=== PATIENT | male | born 1960 | race Caucasian/White ===

== ENCOUNTER 2019-09-19 20:07 | Emergency (ER) | payer OTHER, SELFPAY ==
[2019-09-19 20:09] VITALS: BP 134/96; PULSE 72; RESP 18; TEMP 36.9; O2SAT 96; BMI 30.3
--- NOTE | 2019-09-19 20:12 | ED_ITS ---
Entered by Sarahy Bhakta, acting as scribe for Brian Roche MD HPI - Anxiety General: Chief Complaint: Anxiety Stated Complaint: ANXIETY Time Seen by Provider: 09/19/19 20:12 Source: patient Mode of arrival: EMS Limitations: no limitations History of Present Illness: HPI narrative: 59 yo male presents to ED with complaints of anxiety. The patient said was sitting in chair when everything went going through his mind like a film. He said he has anxiety attacks and it is sort of like this. He said he has bad anxiety. He said the neurologist in [place] told the patient he may be having seizures. The patient states he feels pretty good right now. complaint: anxiety Onset (ago): minute(s) Symptoms: other (dizzy) Severity: moderate Quality: intermittent and improving Place: home History of similar episodes: Yes Provoking factors: emotional stress (argument with ) Relieving factors: nothing Exacerbating factors: nothing Associated symptoms: Reports no associated symptoms; Deny chest pain, chills, fever(s), headache(s), nausea or vomiting Review of Systems General: Reports: 10 or more systems reviewed and unremarkable except in HPI and below Const: Denies: fever or chills Eyes: Denies: change in vision ENMT: Denies: throat pain or mouth pain Card: Denies: chest pain Resp: Denies: shortness of breath GI: Denies: abdominal pain, nausea, vomiting or diarrhea Musc: Denies: back pain or joint pain Skin/Breast: Denies: rash Neuro: Reports: weakness in extremities; Denies: headache or behavioral changes Psych: Denies: depression Endo: Denies: excessive urination Praful/Lymph: Denies: easy bruising All/Imm: Denies: hives PFSH ED PFSH: Statuses (acute, chronic, etc) shown below reflect problem list status as previously entered and may not be historically accurate Social History Smoking and tobacco status: current every day smoker Physical Exam Const: COMMON NORMALS: no apparent distress, oriented x3 and healthy appearing HENMT: COMMON NORMALS: normocephalic and external nose normal HEAD & SCALP: normocephalic NOSE: external nose normal and no nasal discharge (nasal dischage) Eye: COMMON NORMALS: PERRL PUPIL: Yes PERRL Neck/C-Spine: COMMON NORMALS: full ROM and no lymphadenopathy Chest: COMMONS NORMALS: inspection of chest normal Resp: COMMON NORMALS: normal respiratory effort and clear to auscultation bilaterally AUSCULTATION: clear to auscultation bilaterally Cardio: COMMON NORMALS: regular rate and regular rhythm RATE: regular rate RHYTHM: regular rhythm GI: COMMON NORMALS: soft to palpation PALPATION: Yes soft Extremity: COMMON NORMALS: normal to inspection, full ROM and normal capillary refill Neuro: COMMON NORMALS: oriented x3, CN's II-XII intact bilaterally, moves all extremities, no focal motor deficits, no sensory deficits noted and gait normal Psych: COMMON NORMALS: mental status grossly normal and cooperative Skin: COMMON NORMALS: no rashes or lesions noted GENERAL SKIN EXAM: no rashes or lesions noted Course Vital Signs: Vital signs: Vital Signs Temperature 98.5 F 09/19/19 20:09 Pulse Rate 72 09/19/19 20:09 Respiratory Rate 18 09/19/19 20:09 Blood Pressure 134/96 09/19/19 20:09 Pulse Oximetry 96 09/19/19 20:09 MDM - Anxiety MDM Narrative: Medical decision making narrative: Patient presents here with likely anxiety. He could have also had a possible TIA but I believe this is unlikely. Patient here is asymptomatic and is well-appearing. Patient's head CT is normal. Patient's lab work is normal as well. Patient has been asymptomatic here and is able to ambulate without any problems. He is stable for discharge and is to follow-up with his primary care doctor in 3 to 4 days. He is to return if worsening. Imaging Data^: CT Head: Radiologist's impression: Ordering Provider/Ordering MD: Brian Roche MD Date of Service: 09/19/19 Procedure(s): CT head wo con* [id number] Accession Number(s): [id number] Report Number: [id number] PROCEDURE INFORMATION: Exam: CT Head Without Contrast Exam date and time: 09/19/2019 8:23 PM Age: 59 years old Clinical indication: Dizziness and other: Anxious; Prior surgery; Surgery date: 6+ months; Surgery type: Brain for aneurysm TECHNIQUE: Imaging protocol: Computed tomography of the head without contrast. Total DLP: 880.47 mGy-cm Radiation optimization: All CT scans at this facility use at least one of these dose optimization techniques: automated exposure control; mA and/or kV adjustment per patient size (includes targeted exams where dose is matched to clinical indication); or iterative reconstruction. COMPARISON: CT head wo con* [id number] 02/10/2019 8:06 AM FINDINGS: Brain: There is encephalomalacia of the right cerebellum. Embolization coils are noted in the posterior cranial fossa. No acute hemorrhage, edema or mass effect. No new edema, hemorrhage or mass effect. Ventricles: The ventricular size is appropriate. Bones/joints: Unremarkable. No acute fracture. Sinuses: Visualized sinuses are unremarkable. No fluid levels. Mastoid air cells: Visualized mastoid air cells are well aerated. Soft tissues: Unremarkable. Other findings: There is mild volume loss. CT/CT head wo con* [id number] IMPRESSION: Postoperative changes in the posterior cranial fossa with multiple embolization coils. There is encephalomalacia. No acute hemorrhage or edema. EKG Data^: EKG 1: Attestation: I personally reviewed and interpreted this EKG as follows: EKG interpretation date: 09/19/19 EKG interpretation time: 20:25 Interpretation: Head CT 09/19/19 20:15 IMPRESSION: Postoperative changes in the posterior cranial fossa with multiple embolization coils. There is encephalomalacia. No acute hemorrhage or edema. Radiation Dose CTDIVOL = (mGy): DLP = 880.47 (mGy-cm) Normal sinus rhythm heart rate [address] or T wave abnormalities Other EKG comments: Head CT 09/19/19 20:15 IMPRESSION: Postoperative changes in the posterior cranial fossa with multiple embolization coils. There is encephalomalacia. No acute hemorrhage or edema. Radiation Dose CTDIVOL = (mGy): DLP = 880.47 (mGy-cm) Lab Data: Labs: Lab Results 09/19/19 09/19/19 Range/Units 20:47 20:47 WBC 9.8 (4.0-10.0) 10^3/ uL RBC 4.82 (4.1-5.3) 10^6/u L Hgb 14.9 (11.7-16.6) g/dL Hct 43.3 (42.0-52.0) % MCV 89.8 (80-94) fL MCH 30.9 (28.0-34.0) pg MCHC 34.4 (30.0-36.0) g/dL RDW 12.5 (12.1-15.1) % Plt Count 300 (130-400) 10^3/c mm MPV 9.0 (7.4-10.4) fL Neut % (Auto) 59.1 % Lymph % (Auto) 24.8 % Garland % (Auto) 12.9 % Eos % (Auto) 2.3 % Baso % (Auto) 0.6 % Neut # (Auto) 5.8 (1.8-7.7) 10^3/u L Lymph # (Auto) 2.4 (0.8-4.8) 10^3/u L Garland # (Auto) 1.3 H (0.2-0.9) 10^3/u L Eos # (Auto) 0.2 (0.0-0.8) 10^3/u L Baso # (Auto) 0.1 (0.0-0.1) 10^3/u L Nucleated RBC % (a uto) 0 % Nucleated RBCs # 0.0 /100WBC Sodium 136 (136-145) mmol/L Potassium 3.9 (3.5-5.1) mmol/L Chloride 98 (98-107) mmol/L Carbon Dioxide 25 (22-29) mmol/L Anion Gap 16.9 (5-19) BUN 13 (6-20) mg/dL Creatinine 1.0 (0.7-1.2) mg/dL GFR Calculation 77.0 L (90-130) mL/min Glucose 116 H (74-109) mg/dL Calculated Osmolal ity 279 L (285-295) mOsm/k g Calcium 10.1 (8.5-10.5) mg/dL Discharge Plan Discharge Patient Disposition: Home, Self-Care Clinical Impression: Acute anxiety, Weakness Condition: Stable Discharge Orders: Discharge Order (Routine); Ordered 09/19/19 Ordered By: Brian Roche Referrals: Mirlande Mena APN [Primary Care Provider] - 4-7 days Discharge Diet: Advance as tolerated Discharge Activity: Resume usual activity Patient Instructions: Anxiety (ED) Coding Level of Care Code ED Psychiatry Physician for Chg Fwd Exam Problem Focused The documentation recorded by the scribLivia yu Valerie R, accurately reflects the service I personally performed and the decisions made by me, Brian Roche MD Sep 19, 2019 20:07
--- NOTE | 2019-09-19 20:15 | CTR_ITS ---
PROCEDURE INFORMATION: Exam: CT Head Without Contrast Exam date and time: 09/19/2019 8:23 PM Age: 59 years old Clinical indication: Dizziness and other: Anxious; Prior surgery; Surgery date: 6+ months; Surgery type: Brain for aneurysm TECHNIQUE: Imaging protocol: Computed tomography of the head without contrast. Total DLP: 880.47 mGy-cm Radiation optimization: All CT scans at this facility use at least one of these dose optimization techniques: automated exposure control; mA and/or kV adjustment per patient size (includes targeted exams where dose is matched to clinical indication); or iterative reconstruction. COMPARISON: CT head wo con* [id number] 02/10/2019 8:06 AM FINDINGS: Brain: There is encephalomalacia of the right cerebellum. Embolization coils are noted in the posterior cranial fossa. No acute hemorrhage, edema or mass effect. No new edema, hemorrhage or mass effect. Ventricles: The ventricular size is appropriate. Bones/joints: Unremarkable. No acute fracture. Sinuses: Visualized sinuses are unremarkable. No fluid levels. Mastoid air cells: Visualized mastoid air cells are well aerated. Soft tissues: Unremarkable. Other findings: There is mild volume loss. CT/CT head wo con* [id number] IMPRESSION: Postoperative changes in the posterior cranial fossa with multiple embolization coils. There is encephalomalacia. No acute hemorrhage or edema. Radiation Dose CTDIVOL = (mGy): DLP = 880.47 (mGy-cm)
--- NOTE | 2019-09-19 20:15 | ECG_ITS ---
Measurements Intervals [place] Rate: 66 P: 42 OK: 166 QRS: -11 QRSD: 98 T: 27 QT: 390 QTc: 410 SINUS RHYTHM Compared to ECG 02/10/2019 08:02:25 Indeterminate axis no longer present Incomplete right bundle-branch block no longer present Electronically Signed On 09-20-2019 15:33:17 METALLURGICAL LAB TECHNICIAN by King Cho M.D. [email or web address]
[2019-09-19] MEDS: LORazepam 2 mg/mL INJ 1 mL 1 MG IVP (20:25)
[2019-09-19 20:52] LABS: Basophils # 0.1 10^3/uL (0.0-0.1); Basophils % 0.6 %; Eosinophils # 0.2 10^3/uL (0.0-0.8); Eosinophils % 2.3 %; Hematocrit 43.3 % (42.0-52.0); Hemoglobin 14.9 g/dL (11.7-16.6); Lymphocytes # 2.4 10^3/uL (0.8-4.8); Lymphocytes % 24.8 %; Mean Corpuscular HGB Conc 34.4 g/dL (30.0-36.0); Mean Corpuscular Hemoglobin 30.9 pg (28.0-34.0); Mean Corpuscular Volume 89.8 fL (80-94); Monocytes # 1.3 10^3/uL (0.2-0.9); Monocytes % 12.9 %; Neutrophils # 5.8 10^3/uL (1.8-7.7); Neutrophils % 59.1 %; Nucleated Red Blood Cells % 0 %; Platelet Count 300 10^3/cmm (130-400); Red Blood Count 4.82 10^6/uL (4.1-5.3); Red Cell Distribution Width 12.5 % (12.1-15.1); White Blood Count 9.8 10^3/uL (4.0-10.0)
[2019-09-19 21:09] LABS: Anion Gap 16.9 (5-19); Blood Urea Nitrogen 13 mg/dL (6-20); Calcium 10.1 mg/dL (8.5-10.5); Carbon Dioxide 25 mmol/L (22-29); Chloride 98 mmol/L (98-107); Glucose 116 mg/dL (74-109); Osmolality Calculated 279 mOsm/kg (285-295); Potassium 3.9 mmol/L (3.5-5.1); Sodium 136 mmol/L (136-145)
[2019-09-19 21:33] VITALS: BP 122/79; PULSE 67; RESP 16; O2SAT 95
== END 2019-09-19 21:34 | disposition home or self-care (01) ==
PROVIDERS: Emergency Provider Emergency Medicine; Family Provider Nurse Practitioner Family; PCP Nurse Practitioner Family
DX: F41.9 Anxiety disorder, unspecified (principal); R53.1 Weakness; F17.210 Nicotine dependence, cigarettes, uncomplicated
CPT/HCPCS: 70450; 80048; 85025; 93005; 96374; 99281; J2060

== ENCOUNTER → 2019-10-17 07:37 | Outpatient (BNVA) | payer OTHER, SELFPAY | PROVIDERS: Referring Provider Internal Medicine; Visit Provider Specialist | DX: R56.9 Unspecified convulsions (principal); I77.0 Arteriovenous fistula, acquired; F31.0 Bipolar disorder, current episode hypomanic; F17.210 Nicotine dependence, cigarettes, uncomplicated | CPT/HCPCS: 99204; 99214 ==

== ENCOUNTER → 2019-11-12 08:05 | Outpatient (BNVA) | payer OTHER, SELFPAY | PROVIDERS: PCP Internal Medicine; Visit Provider Specialist | DX: G40.909 Epilepsy, unspecified, not intractable, without status epilepticus (principal); F17.210 Nicotine dependence, cigarettes, uncomplicated | CPT/HCPCS: 99213 ==

== ENCOUNTER 2019-11-12 09:13 | Outpatient (CLI) | payer OTHER, SELFPAY ==
[2019-11-12 11:20] LABS: Valproic Acid Level 70.2 mcg/mL (50-100)
== END 2019-11-12 09:14 | disposition home or self-care (01) ==
LOC: LAB 09:15
PROVIDERS: PCP Internal Medicine; Visit Provider Specialist
DX: G40.909 Epilepsy, unspecified, not intractable, without status epilepticus (principal)
CPT/HCPCS: 80164

== ENCOUNTER → 2020-02-18 11:11 | Outpatient (BNVA) | payer OTHER, SELFPAY | PROVIDERS: PCP Internal Medicine; Visit Provider Specialist | DX: G40.209 Localization-related (focal) (partial) symptomatic epilepsy and epileptic syndromes with complex partial seizures, not intractable, without status epilepticus (principal); R29.90 Unspecified symptoms and signs involving the nervous system; F31.0 Bipolar disorder, current episode hypomanic; I69.398 Other sequelae of cerebral infarction; R42 Dizziness and giddiness | CPT/HCPCS: 99214 ==

== ENCOUNTER → 2020-08-19 08:58 | Outpatient (BNVA) | payer OTHER, SELFPAY | PROVIDERS: PCP Internal Medicine; Visit Provider Specialist | DX: G40.209 Localization-related (focal) (partial) symptomatic epilepsy and epileptic syndromes with complex partial seizures, not intractable, without status epilepticus (principal); F17.210 Nicotine dependence, cigarettes, uncomplicated | CPT/HCPCS: 99213 ==

== ENCOUNTER → 2021-02-17 07:54 | Outpatient (BNVA) | payer OTHER, SELFPAY | PROVIDERS: PCP Internal Medicine; Visit Provider Specialist | DX: G40.209 Localization-related (focal) (partial) symptomatic epilepsy and epileptic syndromes with complex partial seizures, not intractable, without status epilepticus (principal); F17.210 Nicotine dependence, cigarettes, uncomplicated | CPT/HCPCS: 99214 ==

== ENCOUNTER → 2021-03-16 12:55 | Outpatient (BNVA) | payer OTHER, SELFPAY | PROVIDERS: PCP Internal Medicine; Visit Provider Specialist | DX: G40.209 Localization-related (focal) (partial) symptomatic epilepsy and epileptic syndromes with complex partial seizures, not intractable, without status epilepticus (principal); F17.210 Nicotine dependence, cigarettes, uncomplicated | CPT/HCPCS: 95816 ==

== ENCOUNTER 2021-03-16 14:18 | Outpatient (CLI) | payer OTHER, SELFPAY ==
[2021-03-16 14:57] LABS: Valproic Acid Level 73.3 ug/mL (50-100)
== END 2021-03-16 14:19 | disposition home or self-care (01) ==
PROVIDERS: PCP Internal Medicine; Visit Provider Specialist
DX: G40.209 Localization-related (focal) (partial) symptomatic epilepsy and epileptic syndromes with complex partial seizures, not intractable, without status epilepticus (principal)
CPT/HCPCS: 36415; 80164

== ENCOUNTER → 2021-05-05 12:54 | Outpatient (BNVA) | payer OTHER, SELFPAY | PROVIDERS: PCP Internal Medicine; Visit Provider Specialist | DX: G40.209 Localization-related (focal) (partial) symptomatic epilepsy and epileptic syndromes with complex partial seizures, not intractable, without status epilepticus (principal); F31.0 Bipolar disorder, current episode hypomanic; G25.0 Essential tremor | CPT/HCPCS: 99214 ==

== ENCOUNTER → 2021-11-03 08:57 | Outpatient (BNVA) | payer OTHER, SELFPAY | PROVIDERS: PCP Family Medicine; Visit Provider Specialist | DX: G40.209 Localization-related (focal) (partial) symptomatic epilepsy and epileptic syndromes with complex partial seizures, not intractable, without status epilepticus (principal); F17.210 Nicotine dependence, cigarettes, uncomplicated | CPT/HCPCS: 99214 ==

== ENCOUNTER 2022-02-05 19:29 | Emergency (ER) | payer OTHER, MEDICARE, SELFPAY ==
--- NOTE | 2022-02-05 19:29 | XRR_ITS ---
PROCEDURE INFORMATION: Exam: XR Left Shoulder Exam date and time: 02/05/2022 7:49 PM Age: 62 years old Clinical indication: Injury or trauma; Blunt trauma (contusions or hematomas); Shoulder; Left; Injury details: Fall from porch TECHNIQUE: Imaging protocol: XR Left shoulder. Views: 2 or more views. COMPARISON: [place] Chest 1 [place] [id number] 02/10/2019 8:10 AM FINDINGS: Bones/joints: Mid humeral diaphysis fracture with angulation and nearly 1 full shaft displacement. Soft tissues: Normal. XR/XR shoulder LT min 2V* [id number] IMPRESSION: Mid humeral diaphysis fracture with angulation and nearly 1 full shaft displacement.
[2022-02-05 19:33] VITALS: BP 161/107; PULSE 69; RESP 20; TEMP 36.6; O2SAT 94; BMI 32.5
[2022-02-05 19:47] VITALS: BP 158/122; PULSE 67; O2SAT 93
--- NOTE | 2022-02-05 19:49 | XRR_ITS ---
PROCEDURE INFORMATION: Exam: XR Left Humerus Exam date and time: 02/05/2022 7:55 PM Age: 62 years old Clinical indication: Injury or trauma; Blunt trauma (contusions or hematomas); Arm, upper; Left; Injury details: Fall from porch TECHNIQUE: Imaging protocol: XR Left humerus. Views: 2 or more views. COMPARISON: CR (CHEST, ) 02/05/2022 7:49 PM FINDINGS: Bones/joints: Mid humeral diaphysis fracture with angulation and nearly 1 full shaft displacement. Soft tissues: Normal. XR/[place] [id number] IMPRESSION: Mid humeral diaphysis fracture with angulation and nearly 1 full shaft displacement.
[2022-02-05] MEDS: HYDROcodone-acetaminophen 5-325 mg Tablet 1 TAB PO (19:53)
--- NOTE | 2022-02-05 20:01 | ED_ITS ---
HPI - Extremity Problem General: Chief complaint: Extremity Injury, Upper Stated complaint: fell, injured L arm/shoulder Time Seen by Provider: 02/05/22 19:38 Source: patient Mode of arrival: ambulatory Limitations: no limitations History of Present Illness: 62-year-old male states that he was on a porch bent over to get his cat and he fell onto his left arm. He states he has pain in his left arm at his midshaft of his humerus. He has obvious deformity as well. He states his pain currently is a 6 out of 10. Denies any other injuries denies hitting his head denies any neck pain. Associated symptoms: Deny chest pain, fever(s) or rash Review of Systems Const: Denies: fever(s), chills, body aches or change in appetite Eyes: Denies: blurry vision or eye discomfort ENMT: Denies: throat pain or dental pain Card: Denies: chest pain Resp: Denies: dyspnea GI: Denies: abdominal pain, nausea, vomiting or diarrhea : Denies: dysuria Musc: Reports: extremity pain Skin/Breast: Denies: rash Neuro: Denies: headache(s) Psych: Denies: depression Praful/Lymph: Denies: easy bruising All/Imm: Denies: urticaria PFSH ED PFSH: Family History Other CAD (coronary artery disease) Hypertension Denies family history of Diabetes Cancer Stroke Social History Smoking and tobacco status: current every day smoker cigarettes Packs smoked per day: 0.5 Alcohol intake: current Alcohol intake frequency: few times a week Alcohol type: beer History of recent travel: No Physical Exam Const: COMMON NORMALS: no acute distress, patient oriented x3 and healthy appearing HENMT: COMMON NORMALS: normocephalic and atraumatic HEAD & SCALP: normocephalic and atraumatic Eye: COMMON NORMALS: Equal, round and reactive pupils present and EOMs intact bilaterally PUPIL: Yes Equal, round and reactive pupils present Neck/C-Spine: COMMON NORMALS: full ROM and supple Chest: COMMONS NORMALS: normal inspection of the chest and normal palpation of entire chest wall Resp: COMMON NORMALS: normal respiratory effort, No retractions, No use of accessory muscles and clear to auscultation bilaterally AUSCULTATION: clear to auscultation bilaterally Cardio: COMMON NORMALS: regular rate, regular rhythm and No murmurs present (Cardio) RATE: regular rate RHYTHM: regular rhythm GI: COMMON NORMALS: Normal to inspection, nondistended, normoactive bowel so unds present, Soft to palpation, non-tender and no masses PALPATION: Yes Soft to palpation Extremity: NARRATIVE EXTREMITY EXAM: Obvious deformity to left humerus he does have sensation intact his left hand distal pulses are intact as well Neuro: COMMON NORMALS: patient oriented x3, moves all extremities and no focal motor deficits Psych: COMMON NORMALS: mental status grossly normal, Normal thought process present and cooperative THOUGHT PROCESS: Normal thought process present Skin: COMMON NORMALS: no rashes or lesions noted and no wounds GENERAL SKIN EXAM: no rashes or lesions noted Course Vital Signs: Vital signs: Vital Signs Temperature 97.8 F 02/05/22 19:33 Pulse Rate 67 02/05/22 19:47 Respiratory Rate 20 H 02/05/22 19:33 Blood Pressure 158/122 02/05/22 19:47 Pulse Oximetry 93 02/05/22 19:47 MDM - Extremity (Nontraumatic) Medical Decision Making Patient presents here with a humerus fracture from a fall spoke to orthopedics will place patient in a splint have him follow-up early next week he has no other signs of injury he is neurovascularly intact. Discharge Plan Discharge Patient Disposition: Home Clinical Impression: Fracture, humerus Qualifiers: Encounter type: initial encounter Humerus Location: shaft Fracture type: closed Fracture morphology: unspecified fracture morphology Laterality: left Qualified Code(s): S42.302A - Unspecified fracture of shaft of humerus, left arm, initial encounter for closed fracture Condition: Stable Prescriptions: New hydrocodone-acetaminophen 5-325 mg tablet 1 tab PO Q6H PRN (Reason: pain) Qty: 14 0RF No Action divalproex [Depakote ER] 500 mg tablet extended release 24 hr 500 mg PO TID Qty: 90 5RF Rx Instructions: Take all 3 in morning primidone 50 mg tablet 50 mg PO BID Qty: 60 5RF Rx Instructions: Take 1 in morning and 1 in afternoon thiamine HCl (vitamin B1) 100 mg tablet 50 mg PO DAILY 0RF multivitamin Capsule 1 cap PO DAILY 0RF aspirin [Aspir-81] 81 mg tablet,delayed release (DR/EC) 81 mg PO DAILY 0RF hydroxyzine HCl 25 mg tablet 25 mg PO TID PRN0RF folic acid 1 mg tablet 1 mg PO DAILY 0RF fluoxetine 20 mg capsule 20 mg PO DAILY 0RF metoprolol tartrate 100 mg tablet 100 mg PO BID 0RF Discharge Orders: Discharge ED (Routine); Ordered 02/05/22 Ordered By: Brian Roche Referrals: Margo Luis MD [Primary Care Provider] - Luis Sykes MD [Physician] - 1-3 days Discharge Diet: Advance as tolerated Discharge Activity: Resume usual activity Patient Instructions: Arm Fracture in Adults (ED), Opioid Safety Coding Level of Care Code ED Construction Materials Tester for Shagufta Fwd Exam Comprehensive
--- NOTE | 2022-02-07 14:48 | DCPLANNER ---
Addendum entered by Rola Armstrong 02/14/22 07:41: Patient had a follow up appointment with ortho - patient did attend appointment. Addendum entered by Rola Armstrong 02/08/22 15:59: Patient has a follow up appointment scheduled for Monday, February 09, 2022 at 1:[address] Sykes at ortho. Clinic will call patient with appointment information. Original Note: cleaning manager had message to schedule a follow up appointment for patient with ortho. cleaning manager sent patients information to the front office staff at ortho. Patients information will be printed and reviewed. Clinic will call patient with appointment information.
== END 2022-02-05 20:45 | disposition home or self-care (01) ==
PROVIDERS: Emergency Provider Emergency Medicine; PCP Family Medicine
DX: S42.302A Unspecified fracture of shaft of humerus, left arm, initial encounter for closed fracture (principal); W18.30XA Fall on same level, unspecified, initial encounter
CPT/HCPCS: 73030; 73060; 99283

== ENCOUNTER → 2022-02-09 13:43 | Outpatient (BNVA) | payer OTHER, MEDICARE, SELFPAY | PROVIDERS: PCP Family Medicine; Referring Provider Emergency Medicine; Visit Provider Orthopaedic Surgery | DX: S42.322A Displaced transverse fracture of shaft of humerus, left arm, initial encounter for closed fracture (principal); W10.9XXA Fall (on) (from) unspecified stairs and steps, initial encounter | CPT/HCPCS: 24500 ==

== ENCOUNTER 2022-02-09 15:56 | Outpatient (CLI) | payer OTHER, MEDICARE, SELFPAY | END 2022-02-09 15:57 | disposition home or self-care (01) | LOC: SPT 15:57 | PROVIDERS: PCP Family Medicine; Visit Provider Orthopaedic Surgery | DX: Z46.89 Encounter for fitting and adjustment of other specified devices (principal); S42.302D Unspecified fracture of shaft of humerus, left arm, subsequent encounter for fracture with routine healing; X58.XXXD Exposure to other specified factors, subsequent encounter | CPT/HCPCS: 97760; L3980 ==

== ENCOUNTER → 2022-02-14 09:50 | Outpatient (BNVA) | payer OTHER, SELFPAY | PROVIDERS: PCP Family Medicine; Visit Provider Specialist | DX: G40.209 Localization-related (focal) (partial) symptomatic epilepsy and epileptic syndromes with complex partial seizures, not intractable, without status epilepticus (principal); F06.30 Mood disorder due to known physiological condition, unspecified; G25.0 Essential tremor | CPT/HCPCS: 36415; 84460; 99213; 99214 ==

== ENCOUNTER 2022-02-17 07:57 | Day surgery (SDC) | payer OTHER, SELFPAY ==
[2022-02-16 17:07] VITALS: BMI 33.0
[2022-02-17] VITALS (9 sets, daily range): BP systolic 102–150; BP diastolic 78–98; PULSE 61–76; RESP 12–18; TEMP 36.2–36.4; O2SAT 91–100
--- NOTE | 2022-02-17 | XR_ITS ---
WS: [id number] Exam: [place] [id number] Date/Time of Exam: 02/17/2022 12:50 PM Reason For Exam: orif humerus AP and lateral intraoperative C-arm images of the midshaft of the left humerus are submitted. A midshaft fracture is stabilized with plate and screw fixation in good alignment for healing. Postop erative changes in the adjacent soft tissues. No other significant finding on this limited series.
--- NOTE | 2022-02-17 | SCC_ITS ---
Procedure done: Open reduction internal fixation left humerus 13.2 seconds of fluoroscopic guidance, for a cumulative dose of 0.79 mGy, was provided to Dr. Sykes by the radiology department. C-arm images of the LEFT humerus were saved for the patient's permanent record. MARS
[2022-02-17] MEDS: sodium chloride 0.9% 1,000 ML 30 ML IV (08:50)
--- NOTE | 2022-02-17 09:21 | ANES.PREANE2 ---
Pre-Anesthetic Assessment Height/Weight: Height 1.85 m Weight 113.398 kg Preop Diagnosis: Fracture left humerus Operation Date: 02/17/22 09:05 Proposed Procedures p ORIF Humerus Left: 86326,S42.302A(Left) - Luis Sykes MD Familial anesthetic complications: none Was Beta John taken within 24 hours: Yes Was Clonidine taken within 24 hours: N/A Last intake: Intake Last Liquid Date 02/16/22 Last Liquid Time 18:30 Last Solid Date 02/16/22 Last Solid Time 18:30 Social Tobacco and No alcohol Exam alert, oriented x 3 and regular rate & rhythm Airway Submandibular: within normal limits Cervical ROM: within normal limits Dentition: false Pulmonary Chronic Obstructive Pulmonary Disease CV/HEM Hypertension Neuropsych Anxiety, Cerebrovascular Accident, Depression and Seizure tremor Anesthetic Plan ASA status: 3 Anesthesia: General and Regional (specify below) (Discussed Right Interscalene for postop pain) Medications/Allergies Home Medications Medication Instructions Recorded Confirmed Last Taken Type aspirin 81 mg tablet,delayed 81 mg PO DAILY 10/17/19 02/17/22 2 Months Ago History release (Aspir-) ~12/18/21 fluoxetine 20 mg capsule 20 mg PO DAILY 10/17/19 02/17/22 02/16/22 History folic acid 1 mg tablet 1 mg PO DAILY 10/17/19 02/17/22 02/17/22 History hydroxyzine HCl 25 mg tablet 25 mg PO TID PRN 10/17/19 02/17/22 02/17/22 History metoprolol tartrate 100 mg tablet 100 mg PO BID 10/17/19 02/17/22 02/17/22 History multivitamin 1 cap PO DAILY 10/17/19 02/17/22 02/17/22 History thiamine HCl (vitamin B1) 100 mg 50 mg PO DAILY 10/17/19 02/17/22 02/17/22 History tablet primidone 50 mg tablet 50 mg PO BID #60 tab 11/03/21 02/17/22 02/17/22 Rx Humeral fracture brace #1 ea 02/09/22 02/16/22 Unknown Rx hydrocodone 5 mg-acetaminophen 325 1 tab PO Q6H PRN 7 Days #30 tab 02/15/22 02/17/22 02/17/22 Rx mg tablet divalproex 500 mg tablet,extended 1,500 mg PO DAILY 02/16/22 02/17/22 02/17/22 History release 24 hr (Depakote ER) Allergies Allergy/AdvReac Type Severity Reaction Status Date / Time Penicillins Allergy Unknown Verified 02/17/22 08:21 Current Medications Generic Name Dose Route Start Last Admin Trade Name Mumtazq PRN Reason Stop Dose Admin Sodium Chloride 1,000 mls @ 30 mls/hr 02/17/22 08:00 02/17/22 08:50 Sodium Chloride 0.9% IV 02/18/22 07:59 30 mls/hr .Q24H RAFFAELE Administration PFSH Anesthesia Family History Other CAD (coronary artery disease) Hypertension Denies family history of Diabetes Cancer Stroke Social History Smoking and tobacco status: current every day smoker cigarettes Packs smoked per day: 0.5 Alcohol intake: current Alcohol intake frequency: few times a week Alcohol type: beer History of recent travel: No Data Anesthesia Cardiac Studies: No Data to Display
--- NOTE | 2022-02-17 09:22 | P.HP_ITS ---
Same Day Surgery H&P Indication for Procedure/HPI DATE OF PROCEDURE: February 17, 2022 CHIEF COMPLAINT/INDICATIONFOR SURGICAL PROCEDURE: Fracture left humerus here for open reduction and internal fixation PREOP DIAGNOSIS: Fracture left humerus PLANNED PROCEDURE: Operation Date: 02/17/22 09:05 Proposed Procedures p ORIF Humerus Left: 19216,S42.302A(Left) - Luis Sykes MD Mr. Govea is a 62-year-old male who sustained a fracture of his left humerus on 02/05/2022 when he fell from a porch. He initially elected nonoperative tr eatment but continued to be bothered by pain. He has chosen open reduction internal fixation to improve stability of the fracture and reduce pain Medications/Allergies* Home Medications Medication Instructions Recorded Confirmed Type aspirin 81 mg tablet,delayed 81 mg PO DAILY 10/17/19 02/17/22 History release (Aspir-) fluoxetine 20 mg capsule 20 mg PO DAILY 10/17/19 02/17/22 History folic acid 1 mg tablet 1 mg PO DAILY 10/17/19 02/17/22 History hydroxyzine HCl 25 mg tablet 25 mg PO TID PRN 10/17/19 02/17/22 History metoprolol tartrate 100 mg tablet 100 mg PO BID 10/17/19 02/17/22 History multivitamin 1 cap PO DAILY 10/17/19 02/17/22 History thiamine HCl (vitamin B1) 100 mg 50 mg PO DAILY 10/17/19 02/17/22 History tablet divalproex 500 mg tablet,extended 1,500 mg PO DAILY 02/16/22 02/17/22 History release 24 hr (Depakote ER) Allergies/Adverse Reactions Allergy/AdvReac Type Severity Reaction Status Date / Time Penicillins Allergy Unknown Verified 02/17/22 08:21 Current Medications: Generic Name Dose Route Start Last Admin Trade Name Freq PRN Reason Stop Dose Admin Sodium Chloride 1,000 mls @ 30 mls/hr 02/17/22 08:00 02/17/22 08:50 Sodium Chloride 0.9% IV 02/18/22 07:59 30 mls/hr .Q24H RAFFAELE Administration Pertinent History/Comorbid Conditions* Family History (Updated 10/17/19 @ 08:12 by Kerry Muse LPN) CAD (coronary artery disease) Hypertension Denies family history of Diabetes Cancer Stroke Social History Smoking and tobacco status: current every day smoker cigarettes Packs smoked per day: 0.5 Alcohol intake: current Alcohol intake frequency: few times a week Alcohol type: beer History of recent travel: No Pertinent Exam Findings alert, oriented x 3, clear to auscultation bilaterally and regular rate & rhythm Recommendations Surgery/Procedure today Other Plans: I discussed treatment options again with Mr. Govea. He does not feel he is able to tolerate the pain with nonoperative treatment and is wishing to proceed with surgical stabilization. I discussed open reduction and internal fixation with him. I discussed with open incisions there would be some risk of bleeding and infection. Blood vessel and nerve injury is certainly a possibility. His radial nerve has been intact throughout. I discussed painful hardware that may need to be removed. I discussed risk of nonunion and malunion. I discussed the possible need for further procedures. He understands agrees to proceed Coding Level of Care Code Acute Scrap Separator for Shagufta [place]
--- NOTE | 2022-02-17 11:23 | PM.OP ---
Operative Report Date of procedure: February 17, 2022 Pre-op diagnosis: Preop Diagnosis Fracture left humerus Post-op diagnosis: same Procedure done: Open reduction internal fixation left humerus Pathology: none sent Surgeon: Luis Sykes Anesthesia: General Estimated blood loss (mL): 100 Findings: The patient has a transverse fracture left midshaft humerus Condition: stable Disposition: PACU Procedure: The patient was taken the operative general anesthesia. He is prepped and draped in the supine position centered over the midshaft anterior lateral arm. Dissection was carried down full-thickness revealing the interval between the biceps and the brachialis with his left arm exposed on a fracture table. A 12 cm long lateral incision was made. The interval between the biceps and brachialis was identified distally and the biceps and deltoid proximally. The biceps was retracted medially and the brachialis musculature split bring this down to the anterior cortex of the humerus. Scar tissue was removed from each end of the fracture using reduction clamps the humerus was brought out to length. A large broad 9 hole Georgette compression plate was applied to the anterior cortex. Most proximal and distal screw were placed the second screw being applied at the distal end of the distal hole. During tightening this provide compression across the fracture. 3 more distal and 3 more proximal bicortical screws were initially applied all with excellent purchase. The final screw hole was filled with additional screw into the distal fragment. Wounds were irrigated with saline. The biceps and brachialis were reapproximated with interrupted 0 Vicryl. Subcutaneous tissues were closed with 2-0 Vicryl. Skin was closed with skin marshall. Sterile dressings were applied. The patient was extubated and taken to recovery room in stable condition.
--- NOTE | 2022-02-17 11:33 | P.PCN_ITS ---
PACU note Narrative: VSS, Good respiratory effort, report to IT SPECIALIST Exam: awake
--- NOTE | 2022-02-17 11:33 | PM.PACU ---
PACU note Narrative: VSS, Good respiratory effort, report to ADMITTING SUPERVISOR Exam: awake
[2022-02-17] MEDS: HYDROcodone-acetaminophen 5-325 mg Tablet 1 TAB PO (12:23)
--- NOTE | 2022-02-17 14:56 | ANE.PACU2 ---
Inpatient post-anesthesia follow up: Airway intact: Yes Vital signs: Temperature 97.2 F Pulse Rate 76 Respiratory Rate 18 Blood Pressure 129/85 Pulse Oximetry 92 Oxygen Delivery Me thod Room Air Oxygen Flow Rate 4 Fraction of Inspir ed Oxygen Hydration adequate: Yes Nausea and vomiting: No Pain level: 3 Mental status: Baseline
== END 2022-02-17 13:01 | disposition home or self-care (01) ==
PROVIDERS: PCP Family Medicine; Visit Provider Orthopaedic Surgery
PROC: (CPT 24515; principal; 2022-02-17 09:05)
DX: S42.302A Unspecified fracture of shaft of humerus, left arm, initial encounter for closed fracture (principal); W17.89XA Other fall from one level to another, initial encounter; J44.9 Chronic obstructive pulmonary disease, unspecified; I10 Essential (primary) hypertension; F41.9 Anxiety disorder, unspecified; Z86.73 Personal history of transient ischemic attack (TIA), and cerebral infarction without residual deficits; Z79.82 Long term (current) use of aspirin; Z82.49 Family history of ischemic heart disease and other diseases of the circulatory system; F17.210 Nicotine dependence, cigarettes, uncomplicated
CPT/HCPCS: 24515; 73060; 76000; C1713; J1100; J1580; J2405; J2704; J2710; J3010; J3490; J7030

== ENCOUNTER → 2022-02-25 11:08 | Outpatient (BNVA) | payer OTHER, SELFPAY | PROVIDERS: PCP Family Medicine; Visit Provider Nurse Practitioner Family | DX: Z98.890 Other specified postprocedural states (principal); S42.302A Unspecified fracture of shaft of humerus, left arm, initial encounter for closed fracture; X58.XXXA Exposure to other specified factors, initial encounter | CPT/HCPCS: 73060; 99024 ==

== ENCOUNTER → 2022-03-08 10:55 | Outpatient (BNVA) | payer OTHER, SELFPAY | PROVIDERS: PCP Family Medicine; Visit Provider Nurse Practitioner Family | DX: S42.302D Unspecified fracture of shaft of humerus, left arm, subsequent encounter for fracture with routine healing (principal); X58.XXXD Exposure to other specified factors, subsequent encounter | CPT/HCPCS: 99024 ==

== ENCOUNTER 2022-04-12 06:00 | Outpatient (RCR) | payer OTHER, SELFPAY | END 2022-04-27 23:59 | disposition home or self-care (01) | LOC: TPT 06:00 | PROVIDERS: PCP Family Medicine; Referring Provider Nurse Practitioner Family; Visit Provider Nurse Practitioner Family | DX: S42.302D Unspecified fracture of shaft of humerus, left arm, subsequent encounter for fracture with routine healing (principal); X58.XXXD Exposure to other specified factors, subsequent encounter | CPT/HCPCS: 97110; 97140; 97162 ==

== ENCOUNTER 2022-05-05 08:14 | Emergency (ER) | payer OTHER, SELFPAY ==
[2022-05-05 08:19] VITALS: BP 163/101; PULSE 96; RESP 20; TEMP 37.1; O2SAT 91
--- NOTE | 2022-05-05 08:43 | CT_ITS ---
WS: [id number] CT HEAD TECHNIQUE: Noncontrast CT of the head obtained from the skullbase to the vertex. CLINICAL INFORMATION: syncope/hx CVA COMPARISON: None. DLP: 1038.[address] scans at [facility] use at least one of these dose optimization techniques: automated e xposure control; mA and/or kV adjustment per patient size (includes targeted exams where dose is matc hed to clinical indication); or iterative reconstruction. FINDINGS: Acute RIGHT subdural hematoma with RIGHT to LEFT midline shift measuring 6 mm. Subdural hematoma claudine ures approximately 11 to 12 mm in maximum dimension. Subdural hematoma overlies the RIGHT frontal par ietal and temporal lobes. Effacement of the underlying sulci. Partial effacement RIGHT lateral ventri enrrique and 3rd ventricle. No hydrocephalus. Slight effacement RIGHT suprasellar cistern and ambient cist matt. 4th ventricle is patent. Embolization coils in the posterior fossa are unchanged. No visualized calvarial fractures. Mild muco alex thickening ethmoid air cells. Mastoid air cells are well aerated. CT/CT head wo con* [id number] IMPRESSION: 1. Acute subdural hematoma overlying the RIGHT frontal parietal and temporal l obes with RIGHT to LEFT midline shift measuring 6 mm. Subdural hematoma measure s 11-12 mm in maximum transverse dimension. 2. Partial effacement RIGHT lateral ventricle and 3rd ventricle. Slight efface ment of the RIGHT suprasellar cistern and RIGHT ambient cistern. 4th ventricle is paten 3. No hydrocephalus. 4. Stable embolization coils in the posterior fossa. Notified Leandro Jimenez DO at 05/05/2022 9:08 AM.
--- NOTE | 2022-05-05 08:43 | XR_ITS ---
WS: [id number] Portable AP upright chest, 05/05/2022 Clinical Data: dyspnea Comparison: Portable chest, 02/10/2019. Findings: No nodules, masses or effusions are seen. The heart is normal. The pulmonary vascularity is not increased. No pneumonia or pneumothorax is seen. The aortic arch and descending thoracic aorta s how mild tortuosity. XR/XR chest 1V portable [id number] Impression: Atherosclerosis.
[2022-05-05 08:49] LABS: Basophils # 0.1 10^3/uL (0.0-0.1); Basophils % 0.5 %; Eosinophils # 0.1 10^3/uL (0.0-0.8); Eosinophils % 0.3 %; Hematocrit 41.6 % (42.0-52.0); Hemoglobin 14.1 g/dL (11.7-16.6); Lymphocytes # 1.6 10^3/uL (0.8-4.8); Lymphocytes % 10.5 %; Mean Corpuscular HGB Conc 33.9 g/dL (30.0-36.0); Mean Corpuscular Hemoglobin 31.1 pg (28.0-34.0); Mean Corpuscular Volume 91.8 fl (80-94); Mean Platelet Volume 8.7 fL (7.4-10.4); Monocytes % 6.8 %; Neutrophils % 81.5 %; Nucleated Red Blood Cells % 0 %; Platelet Count 270 10^3/cmm (130-400); Red Blood Count 4.53 10^6/uL (4.1-5.3); Red Cell Distribution Width 12.4 % (12.1-15.1); White Blood Count 15.2 10^3/uL (4.0-10.0)
--- NOTE | 2022-05-05 09:09 | ECG_ITS ---
[facility] Test Date: 2022-05-05 Pat Name: Alireza Govea Department: Room: Gender: Male Civil Engineer: : 1960 Requested By: Leandro Mcintyre Order Number: [id number] Yomi MD: Jose Jean M.D. Measurements Intervals [place] Rate: 76 P: 72 MN: 147 QRS: 4 QRSD: 98 T: 55 QT: 388 QTc: 436 Interpretive Statements SINUS RHYTHM INDETERMINATE AXIS MODERATE ST DEPRESSION [0.05+ mV ST DEPRESSION] Compared to ECG 09/19/2019 20:25:05 Indeterminate axis now present ST (T wave) deviation now present Electronically Signed On 05-06-2022 14:33:33 CDT by Jose Jean M.D. [id number]
[2022-05-05 09:13] LABS: Blood Urea Nitrogen 7 mg/dL (8-23); Calcium 9.5 mg/dL (8.5-10.5); Carbon Dioxide 26 mmol/L (22-29); Chloride 94 mmol/L (98-107); Glomerular Filtration Rate 98.6 mL/min (90-130); Glucose 144 mg/dL (65-115); Osmolality Calculated 275 mOsm/kg (285-295); Sodium 132 mmol/L (136-145)
--- NOTE | 2022-05-05 09:15 | W.ED.HA ---
HPI - Headache General: Chief Complaint: Headache Stated Complaint: left side weakness, headache Time Seen by Provider: 05/05/22 08:18 Source: patient Mode of arrival: ambulatory History of Present Illness: 62-year-old male presents emergency room 4 days after a fall where he got lightheaded dizzy fell and hit his forehead on the concrete just above the left eye he has an abrasion over the left eye. Since then he has had multiple what he describes as passing out spells syncopal episodes while at home. 1 episode yesterday where he had tonic-clonic like movements and may have had a seizure. Family member at the bedside with him thinks he was awake during the whole thing but is not entirely sure. He has had a severe headache he was concerned he had a stroke. He had a hemorrhagic stroke in the past. He is not currently on any anticoagulants. He is on Depakote. Patient is awake and alert is a significant tremor which he states is baseline for him is been present for some time no definitive diagnosis on it. MD elicited complaint: headache Pertinent past history: recent trauma Onset (ago): day(s) (4) Associated symptoms: Deny chest pain, fever(s), malaise, nausea, rash or vomiting Review of Systems Const: Denies: fever(s), chills, body aches, change in appetite, fatigue or malaise ENMT: Denies: throat pain, ear or mastoid pain, nasal discharge or nasal congestion Card: Denies: chest pain, edema, dyspnea on exertion or orthopnea Resp: Denies: dyspnea, productive cough or non-productive cough GI: Denies: abdominal pain, nausea, vomiting, hematemesis, coffee ground emesis, diarrhea, constipation, bloating, hematochezia or melena : Denies: flank pain, dysuria, urinary frequency or urinary urgency Musc: Reports: neck pain Skin/Breast: Denies: rash or pruritus Neuro: Reports: headache(s) PFSH ED PFSH: Family History Other CAD (coronary artery disease) Hypertension Denies family history of Diabetes Cancer Stroke Social History Smoking and tobacco status: current every day smoker cigarettes Packs smoked per day: 0.5 Alcohol intake: current Alcohol intake frequency: few times a week Alcohol type: beer History of recent travel: No Physical Exam Const: COMMON NORMALS: no acute distress GENERAL APPEARANCE: cooperative and comfortable ORIENTATION/CONSCIOUSNESS: Yes awake, Yes oriented to person, Yes oriented to place and Yes oriented to time HENMT: COMMON NORMALS: normocephalic, atraumatic, hearing grossly normal bilaterally, external ears normal, EAC's normal, TM's normal bilaterally, Normal nasal mucous membranes and turbinates present, moist oral mucous membranes and oropharynx normal HEAD & SCALP: normocephalic and atraumatic NOSE: Normal nasal mucous membranes and turbinates present EXTERNAL EAR: Yes external ears normal EXTERNAL AUDITORY CANAL: EAC's normal TYMPANIC MEMBRANE: TM's normal bilaterally Eye: COMMON NORMALS: Equal, round and reactive pupils present, EOMs intact bilaterally, conjunctivae normal and no scleral icterus CONJUNCTIVA: Yes conjunctivae normal PUPIL: Yes Equal, round and reactive pupils present Neck/C-Spine: COMMON NORMALS: full ROM, no lymphadenopathy, supple and no JVD Resp: COMMON NORMALS: normal respiratory effort, No retractions, No use of accessory muscles and clear to auscultation bilaterally AUSCULTATION: clear to auscultation bilaterally Cardio: COMMON NORMALS: no JVD, regular rate, regular rhythm and No murmurs present (Cardio) RATE: regular rate RHYTHM: regular rhythm GI: COMMON NORMALS: Soft to palpation and No hepatosplenomegaly present AUSCULTATION: Yes normoactive bowel sounds PALPATION: Yes Soft to palpation, No Tenderness to palpation present (GI), No Guarding due to palpation present (GI) and Yes No hepatosplenomegaly present Extremity: COMMON NORMALS: normal to inspection, capillary refill normal, no clubbing, cyanosis or edema, no calf tenderness and no pedal edema Neuro: SENSORIUM/ORIENTATION: Yes oriented to person, Yes oriented to place and Yes oriented to time Skin: COMMON NORMALS: no rashes or lesions noted GENERAL SKIN EXAM: no rashes or lesions noted Course Vital Signs: Vital signs: Vital Signs Temperature 98.8 F 05/05/22 08:19 Pulse Rate 81 05/05/22 09:36 Respiratory Rate 16 05/05/22 09:36 Blood Pressure 167/97 05/05/22 09:36 Pulse Oximetry 90 05/05/22 09:36 Oxygen Delivery Me thod 05/05/22 08:19 MDM - Headache Medical Decision Making Acute on chronic subdural hematoma. Transfer to trauma services. Patient to be transferred by survival flight to [facility]. Reviewed findings with patient and indication for transfer. Medical Records I reviewed the patient's medical records. Lab Data I reviewed the patient's lab results. : 05/05/22 08:40 05/05/22 08:40 Radiology Impressions Chest X-Ray 05/05/22 08:43 Impression: Atherosclerosis. Head CT 05/05/22 08:43 IMPRESSION: 1. Acute subdural hematoma overlying the RIGHT frontal parietal and temporal lobes with RIGHT to LEFT midline shift measuring 6 mm. Subdural hematoma measures 11-12 mm in maximum transverse dimension. 2. Partial effacement RIGHT lateral ventricle and 3rd ventricle. Slight effacement of the RIGHT suprasellar cistern and RIGHT ambient cistern. 4th ventricle is paten 3. No hydrocephalus. 4. Stable embolization coils in the posterior fossa. Notified Leandro Jimenez DO at 05/05/2022 9:08 AM. Laboratory Results WBC 15.2 10^3/uL (4.0-10.0) H 05/05/22 08:40 RBC 4.53 10^6/uL (4.1-5.3) 05/05/22 08:40 Hgb 14.1 g/dL (11.7-16.6) 05/05/22 08:40 Hct 41.6 % (42.0-52.0) L 05/05/22 08:40 MCV 91.8 fl (80-94) 05/05/22 08:40 MCH 31.1 pg (28.0-34.0) 05/05/22 08:40 MCHC 33.9 g/dL (30.0-36.0) 05/05/22 08:40 RDW 12.4 % (12.1-15.1) 05/05/22 08:40 Plt Count 270 10^3/cmm (130-400) 05/05/22 08:40 MPV 8.7 fL (7.4-10.4) 05/05/22 08:40 Neut % (Auto) 81.5 % 05/05/22 08:40 Lymph % (Auto) 10.5 % 05/05/22 08:40 Howell % (Auto) 6.8 % 05/05/22 08:40 Eos % (Auto) 0.3 % 05/05/22 08:40 Baso % (Auto) 0.5 % 05/05/22 08:40 Neut # (Auto) 12.40 10^3/uL (1.8-7.7) H 05/05/22 08:40 Lymph # (Auto) 1.6 10^3/uL (0.8-4.8) 05/05/22 08:40 Howell # (Auto) 1.0 10^3/uL (0.2-0.9) H 05/05/22 08:40 Eos # (Auto) 0.1 10^3/uL (0.0-0.8) 05/05/22 08:40 Baso # (Auto) 0.1 10^3/uL (0.0-0.1) 05/05/22 08:40 Nucleated RBC % (auto) 0 % 05/05/22 08:40 Nucleated RBCs # 0.0 /100WBC 05/05/22 08:40 Sodium 132 mmol/L (136-145) L 05/05/22 08:40 Potassium 4.1 mmol/L (3.5-5.1) 05/05/22 08:40 Chloride 94 mmol/L (98-107) L 05/05/22 08:40 Carbon Dioxide 26 mmol/L (22-29) 05/05/22 08:40 Anion Gap 16.1 (5-19) 05/05/22 08:40 BUN 7 mg/dL (8-23) L 05/05/22 08:40 Creatinine 0.8 mg/dL (0.7-1.2) 05/05/22 08:40 GFR Calculation 98.6 mL/min (90-130) 05/05/22 08:40 Glucose 144 mg/dL (65-115) H 05/05/22 08:40 Calculated Osmolality 275 mOsm/kg (285-295) L 05/05/22 08:40 Calcium 9.5 mg/dL (8.5-10.5) 05/05/22 08:40 Discharge Plan Discharge Patient Disposition: Transfer to ED Condition: Stable Prescriptions: No Action primidone 50 mg tablet 50 mg PO BID Qty: 60 5RF thiamine HCl (vitamin B1) 100 mg tablet 50 mg PO DAILY multivitamin Capsule 1 cap PO DAILY aspirin [Aspir-81] 81 mg tablet,delayed release (DR/EC) 81 mg PO DAILY hydroxyzine HCl 25 mg tablet 25 mg PO TID PRN (Reason: Anxiety) folic acid 1 mg tablet 1 mg PO DAILY fluoxetine 20 mg capsule 20 mg PO DAILY metoprolol tartrate 100 mg tablet 100 mg PO BID (DME) Humeral fracture brace See Rx Instructions .Route .MEDSUPPLY Qty: 1 0RF Rx Instructions: As directed hydrocodone-acetaminophen 5-325 mg tablet 1 tab PO Q6H PRN (Reason: pain) 5 Days Qty: 20 0RF divalproex [Depakote ER] 500 mg tablet extended release 24 hr 1,500 mg PO DAILY Referrals: Margo Luis MD [Primary Care Provider] - Coding Level of Care Code ED Process Validation Engineer for Shagufta Everett
--- NOTE | 2022-05-05 09:18 | PC.NURSE ---
pt placed on continuous spo2, nibp, and cm
[2022-05-05 09:25] LABS: Anion Gap 16.1 (5-19); Potassium 4.1 mmol/L (3.5-5.1)
--- NOTE | 2022-05-05 09:26 | PC.NURSE ---
report called to [facility]i [facility].
[2022-05-05 09:36] VITALS: BP 167/97; PULSE 81; RESP 16; O2SAT 90
== END 2022-05-05 09:38 ==
PROVIDERS: Emergency Provider Family Medicine; PCP Family Medicine
DX: R42 Dizziness and giddiness (principal); Z79.82 Long term (current) use of aspirin; F17.210 Nicotine dependence, cigarettes, uncomplicated
CPT/HCPCS: 70450; 71045; 80048; 85025; 93005; 99285; J1953

== ENCOUNTER → 2022-06-28 09:02 | Outpatient (BNVA) | payer OTHER, SELFPAY | PROVIDERS: PCP Family Medicine; Visit Provider Orthopaedic Surgery | DX: S42.302K Unspecified fracture of shaft of humerus, left arm, subsequent encounter for fracture with nonunion (principal); F17.210 Nicotine dependence, cigarettes, uncomplicated; W19.XXXD Unspecified fall, subsequent encounter | CPT/HCPCS: 73060; 99213 ==

== ENCOUNTER 2022-07-07 10:45 | Day surgery (SDC) | payer OTHER, SELFPAY ==
[2022-07-06 13:22] VITALS: BMI 30.1
[2022-07-07] VITALS (8 sets, daily range): BP systolic 118–144; BP diastolic 82–102; PULSE 62–99; RESP 16–21; TEMP 36.2–36.7; O2SAT 94–96
--- NOTE | 2022-07-07 | SCC_ITS ---
Procedure done: Removal hardware and repeat open reduction internal fixation left humerus with iliac crest bone graft 6 seconds of fluoroscopic guidance, for a cumulative dose of 0.3 mGy, was provided to Dr. Sykes by the radiology department. C-arm images of the LEFT humerus were saved for the patient's permanent record. MARS
--- NOTE | 2022-07-07 | XR_ITS ---
WS: [id number] C-ARM RADIOGRAPHS LEFT HUMERAL; 3 IMAGES HISTORY: OR PICS COMPARISON: Prior radiographs 06/28/2022 Intraoperative imaging during screw and plate fixation across a fracture in the central diaphysis. Fr acture appears to be in good alignment. XR/[place] [id number] IMPRESSION: Intraoperative screw and plate fixation fracture of the mid humeral diaphysis.
[2022-07-07] MEDS: sodium chloride 0.9% 1,000 ML 30 ML IV (11:32)
--- NOTE | 2022-07-07 11:56 | P.HPUD_ITS ---
Surgery/Procedure H&P Update DATE OF PROCEDURE: July 07, 2022 DATE H&P PERFORMED: 06/28/22 H&P UPDATE INFORMATION: I have reviewed H&P completed within last 30 days PREOP DIAGNOSIS: Fracture nonunion left humerus PLANNED PROCEDURE: Operation Date: 07/07/22 11:55 Proposed Procedures p ORIF left humeral shaft fracture with bone graft from [facility] [place] [id number],S42.309K(Left) - Luis Sykes MD
[2022-07-07] MEDS: ceFAZolin 2,000 MG in sodium chloride 0.9% (plus) 50 ML 100 MG IV (12:16)
[2022-07-07] MEDS: acetaminophen 1,000 MG/100 ML PIGGYBACK 400 MG IV (12:40)
[2022-07-07] MEDS: sodium chloride 0.9% 100 mL Bag XX (13:07)
--- NOTE | 2022-07-07 13:52 | ANES.PREANE2 ---
Pre-Anesthetic Assessment Height/Weight: Height 1.83 m Weight 100.698 kg Temp Pulse Resp BP Pulse Ox O2 Del Method 97.9 F 62 18 129/87 95 07/07/22 11:14 07/07/22 11:14 07/07/22 11:14 07/07/22 11:14 07/07/22 11:14 07/07/22 11:14 Preop Diagnosis: Fracture nonunion left humerus Operation Date: 07/07/22 11:55 Proposed Procedures p ORIF left humeral shaft fracture with bone graft from [facility] [place] [address],S42.309K(Left) - Luis Sykes MD Familial anesthetic complications: none Was Beta John taken within 24 hours: Yes Was Clonidine taken within 24 hours: N/A Last intake: Intake Last Liquid Date 07/06/22 Last Liquid Time 19:00 Last Solid Date 07/06/22 Last Solid Time 18:00 Social Tobacco and No alcohol Exam alert, oriented x 3 and regular rate & rhythm Airway Submandibular: within normal limits Cervical ROM: within normal limits Mallampati: Class II Dentition: false Pulmonary Chronic Obstructive Pulmonary Disease CV/HEM Hypertension Metabolic Hyperlipidemia and Morbid Obesity Neuropsych Anxiety, Bipolar, Cerebrovascular Accident (tremor), Depression and Seizure Anesthetic Plan ASA status: 3 Anesthesia: General and Regional (specify below) (Discussed left interscalen blk for postop pain) Medications/Allergies Home Medications Medication Instructions Recorded Confirmed Last Taken Type fluoxetine 20 mg capsule 20 mg PO DAILY 10/17/19 07/07/22 07/06/22 History hydroxyzine HCl 25 mg tablet 25 mg PO TID PRN Anxiety 10/17/19 07/07/22 07/06/22 History metoprolol tartrate 100 mg tablet 100 mg PO BID 10/17/19 07/07/22 07/07/22 07:30 History thiamine HCl (vitamin B1) 100 mg 50 mg PO DAILY 10/17/19 07/07/22 07/06/22 History tablet primidone 50 mg tablet 50 mg PO BID #60 tabs 11/03/21 07/07/22 07/06/22 Rx Humeral fracture brace #1 ea 02/09/22 06/28/22 Unknown Rx acetaminophen 500 mg tablet 500 mg PO QID PRN Pain 07/06/22 07/07/22 07/06/22 History amlodipine 5 mg tablet 5 mg PO DAILY 07/06/22 07/07/22 07/06/22 History rosuvastatin 20 mg tablet 20 mg PO DAILY 07/06/22 07/07/22 07/06/22 History valproic acid 250 mg capsule 250 mg PO TID 07/06/22 07/07/22 07/06/22 History Allergies Allergy/AdvReac Type Severity Reaction Status Date / Time Penicillins Allergy Unknown Verified 07/06/22 13:16 Current Medications Generic Name Dose Route Start Last Admin Trade Name Yudy PRN Reason Stop Dose Admin Sodium Chloride 1,000 mls @ 30 mls/hr 07/07/22 11:15 07/07/22 11:32 Sodium Chloride 0.9% IV 07/08/22 11:14 30 mls/hr .Q24H RAFFAELE Administration PFSH Anesthesia Family History Other CAD (coronary artery disease) Hypertension Denies family history of Diabetes Cancer Stroke Social History Smoking and tobacco status: current every day smoker cigarettes Packs smoked per day: 0.5 Alcohol intake: current Alcohol intake frequency: few times a week Alcohol type: beer History of recent travel: No Data Anesthesia Cardiac Studies: No Data to Display
--- NOTE | 2022-07-07 14:48 | PM.OP ---
Operative Report Date of procedure: July 07, 2022 Pre-op diagnosis: Preop Diagnosis Fracture nonunion left humerus Post-op diagnosis: same Procedure done: Removal hardware and repeat open reduction internal fixation left humerus with iliac crest bone graft Implants: 12 hole Georgette locking 3.5 mm plate with 6 nonlocking and 4 locking screws Specimens removed/disposition: Routine and anaerobic cultures were obtained from the fracture site Pathology: none sent Surgeon: Luis Sykes Anesthesia: General Estimated blood loss (mL): 40 Findings: The patient had a there no evidence of cortical healing but some peripheral periosteal bridging bone. There was no evidence of infection at the fracture site. There is abundant periosteal bone reaction over the plate where the plate was virtually covered by fibrotic tissue cartilage and bone. Condition: stable Disposition: PACU Brief History: Mr. Govea is a 62-year-old male who sustained a fracture of his left humerus over 6 months ago with resorption of most recent radiographs across the fracture site and increasing pain. 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 He has been counseled as to smoking sensation. We are proceeding to the OR today for revision of his open duction internal fixation with iliac crest bone graft Procedure: The patient was taken to the operating room and given a general anesthesia. He was positioned with his left arm in a fracture table and a bump under the right hip. He was given 2 g of Ancef. He was prepped and draped in the supine position with his left arm and right iliac crest exposed. A timeout was performed. Initial attention was paid toward harvest of iliac crest bone graft. Over the anterior superior iliac crest a 4 cm long incision was made and dissection carried out with electrocautery to the iliac crest. An oscillating saw was used to make to dorsal transverse cuts across the crest and 1 lateral to medial cut. The osteotome was used to elevate a window approximately 3cm anterior to posterior. Curettes were introduced in the crest and approximately 10 cc of cancellous bone graft were harvested. The wound was irrigated with saline. Deep tissues were closed with 0 Vicryl. Subcutaneous tissues were closed with 2-0 Vicryl. The skin was closed with skin marshall. A Wilma preliminary light dressing was applied. Attention was then focused on the right humerus. Hypertrophic scar was removed with a scalpel blade. Dissection was carried down the anteriolateral humerus to the lateral intermuscular septum. The biceps was elevated anteriorly and retracted medially. This brought us down to scar tissue about the brachialis. Utilizing electrocautery the brachialis was sharply divided midline. Abundant cartilage scar and bone were identified over the plate and the plate could actually only be visualized far distally. Utilizing rongeurs and osteotomes overlying tissues were removed from the plate and the plate was exposed. 8 screws were removed and the plate elevated. The nonunion site was identified. The cortical bone actually was very well opposed however there is absolutely no bridging bone in that area. A bit more of a gap existed more medially. The fracture site could be flexed allowing access to the fracture sites. They were cleaned with a curette. Approximately 5 cc of bone were then packed in the fracture site posterior medially and posterior laterally. A 12 hole 3.5 mm locking plate was then contoured over the anterior humerus. It was fixed on both the proximal and distal ends with 2 nonlocking screws. 2 additional locking and 1 locking screw were then placed both proximally and distally. The remaining 5 cc of bone graft was packed more anterior medially and anterior laterally over the fracture. The incision was irrigated with saline. The brachialis was reapproximated with 1 Stratafix. The biceps was lightly tacked down to the septum with 2-0 Vicryl. Subcutaneous tissues were closed with 2-0 Stratafix. The skin was closed with a running 4-0 Stratafix. The arm was covered with a Tegaderm dressing. Patient was placed in a sling, extubated, and taken to recovery room in stable condition.
--- NOTE | 2022-07-07 16:03 | ANE.PACU2 ---
Inpatient post-anesthesia follow up: Airway intact: Yes Vital signs: Temperature 97.1 F Pulse Rate 99 Respiratory Rate 18 Blood Pressure 144/82 Pulse Oximetry 94 Oxygen Delivery Me thod Room Air Oxygen Flow Rate Fraction of Inspir ed Oxygen Hydration adequate: Yes Nausea and vomiting: No Pain level: 2 Mental status: Baseline
[2022-07-07] MEDS: oxyCODONE 5 mg IR Tab/Cap PO (16:04)
== END 2022-07-07 16:20 | disposition home or self-care (01) ==
PROVIDERS: PCP Family Medicine; Visit Provider Orthopaedic Surgery
PROC: (CPT 24515; principal; 2022-07-07 11:45)
DX: S42.302K Unspecified fracture of shaft of humerus, left arm, subsequent encounter for fracture with nonunion (principal); X58.XXXD Exposure to other specified factors, subsequent encounter; J44.9 Chronic obstructive pulmonary disease, unspecified; I10 Essential (primary) hypertension; E78.5 Hyperlipidemia, unspecified; E66.01 Morbid (severe) obesity due to excess calories; Z68.30 Body mass index [BMI] 30.0-30.9, adult; F41.9 Anxiety disorder, unspecified; F32.A Depression, unspecified; Z86.73 Personal history of transient ischemic attack (TIA), and cerebral infarction without residual deficits; F17.210 Nicotine dependence, cigarettes, uncomplicated; Z79.82 Long term (current) use of aspirin
CPT/HCPCS: 20680; 24435; 73060; 76000; 87070; 87075; 87205; C1713; J0131; J0690; J1100; J1580; J2405; J2704; J3010; J3490; J7030

== ENCOUNTER → 2022-08-24 10:54 | Outpatient (BNVA) | payer OTHER, SELFPAY | PROVIDERS: PCP Family Medicine; Visit Provider Orthopaedic Surgery | DX: Z87.81 Personal history of (healed) traumatic fracture (principal); Z98.890 Other specified postprocedural states | CPT/HCPCS: 73060; 99024 ==

== ENCOUNTER → 2022-10-05 08:34 | Outpatient (BNVA) | payer OTHER, SELFPAY | PROVIDERS: PCP Family Medicine; Visit Provider Orthopaedic Surgery | DX: Z98.890 Other specified postprocedural states (principal); Z87.81 Personal history of (healed) traumatic fracture | CPT/HCPCS: 73060; 99024; 99213 ==

== ENCOUNTER → 2022-11-22 11:21 | Outpatient (BNVA) | payer OTHER, MEDICAID, SELFPAY | PROVIDERS: PCP Family Medicine; Visit Provider Orthopaedic Surgery | DX: S42.302D Unspecified fracture of shaft of humerus, left arm, subsequent encounter for fracture with routine healing (principal); X58.XXXD Exposure to other specified factors, subsequent encounter | CPT/HCPCS: 73060; 99024; 99213 ==

== ENCOUNTER → 2022-12-19 08:47 | Outpatient (BNVA) | payer OTHER, SELFPAY | PROVIDERS: PCP Family Medicine; Visit Provider Specialist | DX: G40.209 Localization-related (focal) (partial) symptomatic epilepsy and epileptic syndromes with complex partial seizures, not intractable, without status epilepticus (principal); G25.0 Essential tremor; Z51.81 Encounter for therapeutic drug level monitoring; M54.81 Occipital neuralgia; G24.3 Spasmodic torticollis; F31.9 Bipolar disorder, unspecified; F17.210 Nicotine dependence, cigarettes, uncomplicated; Z79.899 Other long term (current) drug therapy | CPT/HCPCS: 64405; 64450; 99215 ==

== ENCOUNTER → 2023-01-03 11:10 | Outpatient (BNVA) | payer OTHER, SELFPAY | PROVIDERS: PCP Family Medicine; Visit Provider Orthopaedic Surgery | DX: Z98.890 Other specified postprocedural states (principal); Z87.81 Personal history of (healed) traumatic fracture; M72.0 Palmar fascial fibromatosis [Dupuytren] | CPT/HCPCS: 73060; 99212 ==

== ENCOUNTER 2023-01-11 06:52 | Outpatient (CLI) | payer OTHER, SELFPAY ==
--- NOTE | 2023-01-11 07:15 | MR_ITS ---
WS: [id number] MRI CERVICAL SPINE NONCONTRAST AND CONTRAST TECHNIQUE: Sagittal T1, T2 and STIR imaging. Axial T2, gradient, and fiesta imaging. Post gadolinium images obtained with fat saturation technique. CLINICAL INFORMATION: G24.3 - Spasmodic torticollis COMPARISON: None. FINDINGS: Straightening of the normal cervical lordosis. Cord signal is normal. Mild spondylitic changes. C2-C3: Mild bilateral bony foraminal narrowing RIGHT greater than LEFT. Mild facet arthropathy. C3-C4: Disc osteophyte complex endplate ridging. Slight contact of the cervical cord.. Spinal canal i s patent. Moderate LEFT and mild RIGHT bony foraminal narrowing. Moderate facet arthropathy. C4-C5: Disc osteophyte complex endplate ridging. Tiny shallow central protrusion. Slight contact of t he cervical cord. Moderate RIGHT and mild LEFT foraminal narrowing. Moderate facet arthropathy. C5-C6: Disc osteophytic ridging. Moderate to severe bilateral bony foraminal narrowing. Uncovertebral joint hypertrophy. Mild to moderate facet arthropathy. Spinal canal is patent. C6-C7: Disc osteophyte complex endplate ridging. Moderate to severe bilateral bony foraminal narrowin g. This is worse in the RIGHT. Mild to moderate facet arthropathy. C7-T1: No significant spinal canal or foraminal narrowing. No abnormal gadolinium enhancement. Visualized brain stem structures: Normal. Prevertebral soft tissues: Normal. LEFT dominant vertebral artery. Tiny hypoplastic RIGHT vertebral artery. Flow voids appear preserved. Vertebral arteries could be better evaluated with CTA if indicated. MR/MR cervical spine wo/w [id number] IMPRESSION: 1. Straightening of the normal cervical lordosis. Cord signal is normal. 2. Mild central canal stenosis C4-C5 and C5-C6 with slight contact of the cerv ical cord. 3. Multilevel moderate to severe bony foraminal narrowing worse at RIGHT C4-C5 , bilateral C5-C6, and bilateral C6-C7 worse in the RIGHT. 4. Moderate LEFT C3-C4 bony foraminal narrowing. 5. Moderate facet arthropathy worse at C4-C5, C5-C6, and C6-C7. Slight 6. No abnormal gadolinium enhancement 7. LEFT dominant vertebral artery. Tiny hypoplastic RIGHT vertebral artery. Fl ow voids appear preserved. Vertebral arteries could be better evaluated with CT A if indicated.
[2023-01-11] MEDS: gadobenate dimeglumine 20 mL vial IV (08:06)
== END 2023-01-11 06:53 | disposition home or self-care (01) ==
PROVIDERS: PCP Family Medicine; Visit Provider Specialist
DX: G24.3 Spasmodic torticollis (principal); M48.02 Spinal stenosis, cervical region; M47.812 Spondylosis without myelopathy or radiculopathy, cervical region; M54.2 Cervicalgia
CPT/HCPCS: 72156; A9577

== ENCOUNTER → 2023-02-16 08:33 | Outpatient (BNVA) | payer OTHER, SELFPAY | PROVIDERS: PCP Family Medicine; Visit Provider Specialist | DX: G24.3 Spasmodic torticollis (principal); M54.81 Occipital neuralgia; G25.0 Essential tremor; G40.209 Localization-related (focal) (partial) symptomatic epilepsy and epileptic syndromes with complex partial seizures, not intractable, without status epilepticus | CPT/HCPCS: 64405; 64450; 64616; J0585; J1030; J3490 ==

== ENCOUNTER 2023-05-25 08:42 | Outpatient (CLI) | payer OTHER, SELFPAY ==
--- NOTE | 2023-05-25 08:48 | XR_ITS ---
WS: [id number] Left hand, 3 views, 05/25/2023 Clinical Data: hand pain Comparison: None. Findings: No fractures or dislocations are seen. There is flexion of the left fifth finger at the PIP joint and extension at the DIP joint. The remainder of the hand is unremarkable. The soft tissues are normal. Impression: Flexion and extension deformity of the left fifth finger.
== END 2023-05-25 08:43 | disposition home or self-care (01) ==
PROVIDERS: PCP Family Medicine; Visit Provider Nurse Practitioner Family
DX: M79.642 Pain in left hand (principal)
CPT/HCPCS: 73130

== ENCOUNTER 2023-05-29 12:24 | Outpatient (CLI) | payer MEDICARE, SELFPAY ==
--- NOTE | 2023-05-29 12:35 | XR_ITS ---
WS: [id number] EXAMINATION: XR chest 2V* [id number] REASON FOR EXAM: LOWER EXTREMITY EDEMA COMPARISON: 05/05/2022 ORDER DATE: 05/29/2023 1:10 PM FINDINGS: The lungs are clear of infiltrate. The cardiac and mediastinal outlines are unremarkable. There ar e no significant pleural effusions . No significant abnormalities are noted in the spine or remainder of the bony thorax. IMPRESSION: NO ACUTE PULMONARY CHANGE.
== END 2023-05-29 12:25 | disposition home or self-care (01) ==
LOC: RAD 12:26
PROVIDERS: PCP Family Medicine; Visit Provider Nurse Practitioner Family
DX: R60.0 Localized edema (principal)
CPT/HCPCS: 71046

== ENCOUNTER → 2023-10-27 08:45 | Outpatient (BNVA) | payer MEDICARE, MEDICAID, SELFPAY | PROVIDERS: PCP Family Medicine; Visit Provider Specialist | DX: M54.81 Occipital neuralgia (principal); G24.3 Spasmodic torticollis; G25.0 Essential tremor; G40.209 Localization-related (focal) (partial) symptomatic epilepsy and epileptic syndromes with complex partial seizures, not intractable, without status epilepticus | CPT/HCPCS: 64405; 99214; J1030; J3490 ==

== ENCOUNTER → 2024-02-27 10:10 | Outpatient (BNVA) | payer MEDICARE, MEDICAID, SELFPAY | PROVIDERS: PCP Family Medicine; Visit Provider Specialist | DX: M54.81 Occipital neuralgia (principal); G24.3 Spasmodic torticollis; G25.0 Essential tremor; G40.209 Localization-related (focal) (partial) symptomatic epilepsy and epileptic syndromes with complex partial seizures, not intractable, without status epilepticus; R03.0 Elevated blood-pressure reading, without diagnosis of hypertension; I95.1 Orthostatic hypotension | CPT/HCPCS: 99214 ==

== ENCOUNTER → 2024-05-30 10:25 | Outpatient (BNVA) | payer OTHER, SELFPAY | PROVIDERS: PCP Family Medicine; Visit Provider Student in an Organized Health Care Education/Training Program | DX: Z12.11 Encounter for screening for malignant neoplasm of colon (principal) | CPT/HCPCS: 99204 ==

== ENCOUNTER 2024-06-25 06:47 | Day surgery (SDC) | payer OTHER, SELFPAY ==
[2024-06-25 07:04] VITALS: BP 113/79; PULSE 46; RESP 18; TEMP 36.1; O2SAT 93; BMI 35.6
[2024-06-25] MEDS: sodium chloride 0.9% 1,000 ML 30 ML IV (07:19)
--- NOTE | 2024-06-25 07:33 | W.PM.OPSUD ---
Surgery/Procedure H&P Update DATE OF PROCEDURE: June 25, 2024 DATE H&P PERFORMED: 05/30/24 H&P UPDATE INFORMATION: I have reviewed H&P completed within last 30 days, I have examined patient prior to procedure and No changes to prior documentation PLANNED PROCEDURE: Operation Date: 06/25/24 08:00 Proposed Procedures p Colonoscopy 48483, G0121, Z12.11(Not Applicable) - Coy Mandujano MD
--- NOTE | 2024-06-25 07:49 | ANES.PREANE2 ---
Pre-Anesthetic Assessment Height/Weight: Height 1.85 m Weight 122.47 kg Temp Pulse Resp BP Pulse Ox O2 Del Method 97.0 F L 46 L 18 113/79 93 Room Air 06/25/24 07:04 06/25/24 07:04 06/25/24 07:04 06/25/24 07:04 06/25/24 07:04 06/25/24 07:04 Preop Diagnosis: screening Operation Date: 06/25/24 08:00 Proposed Procedures p Colonoscopy 42211, G0121, Z12.11(Not Applicable) - Coy Mandujano MD Familial anesthetic complications: none Was Beta John taken within 24 hours: Yes Was Clonidine taken within 24 hours: N/A Last intake: Intake Last Liquid Date 06/24/24 Last Liquid Time 20:00 Last Solid Date 06/23/24 Last Solid Time 18:00 Social No alcohol and No tobacco (quit smoking 10 days ago) Exam alert, oriented x 3 and clear to auscultation bilaterally Airway Mallampati: Class II Dentition: false History/ROS No significant history except as noted Pulmonary Chronic Obstructive Pulmonary Disease CV/HEM Hypertension None reported Hepatic None reported GI None reported Metabolic None reported Musc/skel None reported Neuropsych Anxiety, Bipolar, Cerebrovascular Accident (2017 residual weakness throughout body ), Depression and Seizure (last seizure in 2022, compliant with seizure medication) Anesthetic Plan ASA status: 3 Anesthesia: Anesthesia Evaluation and MAC Risk of > 500 ml blood loss (7ml/kg in children): No Medications/Allergies Home Medications Medication Instructions Recorded Confirmed Last Taken Type fluoxetine 20 mg capsule 20 mg PO DAILY 10/17/19 06/25/24 06/24/24 History hydroxyzine HCl 25 mg tablet 25 mg PO TID PRN Anxiety 10/17/19 06/25/24 06/25/24 06:00 History metoprolol tartrate 100 mg tablet 100 mg PO BID 10/17/19 06/25/24 06/25/24 06:00 History Humeral fracture brace #1 ea 02/09/22 06/25/24 06/24/24 Rx acetaminophen 500 mg tablet 500 mg PO QID PRN Pain 07/06/22 06/25/24 06/19/24 History amlodipine 5 mg tablet 5 mg PO DAILY 07/06/22 06/25/24 06/25/24 06:00 History rosuvastatin 20 mg tablet 20 mg PO DAILY 07/06/22 06/25/24 06/24/24 History cholecalciferol (vitamin D3) 25 25 mcg PO DAILY 12/19/22 06/25/24 06/24/24 History mcg (1,000 unit) capsule hydrochlorothiazide 25 mg tablet 25 mg PO DAILY 09/22/23 06/25/24 06/24/24 History tamsulosin 0.4 mg capsule 0.4 mg PO DAILY 09/22/23 06/25/24 06/24/24 History olanzapine 20 mg tablet 20 mg PO DAILY #1 tab 10/27/23 06/25/24 06/24/24 Rx primidone 50 mg tablet 50 mg PO BID #60 tabs 10/27/23 06/25/24 06/24/24 Rx valproic acid 250 mg capsule 250 mg PO BID #60 caps 10/27/23 06/25/24 06/24/24 Rx zonisamide 100 mg capsule 100 mg PO DAILY #120 caps 10/27/23 06/25/24 06/24/24 Rx (Zonegran) Allergies Allergy/AdvReac Type Severity Reaction Status Date / Time Penicillins Allergy Unknown Verified 05/30/24 10:40 Current Medications Generic Name Dose Route Start Last Admin Trade Name Freq PRN Reason Stop Dose Admin Sodium Chloride 1,000 mls @ 30 mls/hr 06/25/24 07:00 06/25/24 07:19 Sodium Chloride 0.9% IV 30 mls/hr .Q24H RAFFAELE Administration PFSH Anesthesia Family History Other CAD (coronary artery disease) Hypertension Denies family history of Diabetes Cancer Stroke Social History Smoking and tobacco/nicotine status: current every day tobacco/nicotine user cigarettes Packs smoked per day: 0.5 Alcohol intake: current Alcohol intake frequency: few times a week Alcohol type: beer Substance/Drug Use: never Data Anesthesia Cardiac Studies: No Data to Display
[2024-06-25 08:57] VITALS: BP 100/68; PULSE 58; RESP 18; TEMP 36.2; O2SAT 91
[2024-06-25 09:06] VITALS: BP 118/78; PULSE 57; RESP 18; TEMP 36.1; O2SAT 93
--- NOTE | 2024-06-25 09:25 | ANE.PACU2 ---
Inpatient post-anesthesia follow up: Airway intact: Yes Vital signs: Temperature 97 F Pulse Rate 57 Respiratory Rate 18 Blood Pressure 118/78 Pulse Oximetry 93 Oxygen Delivery Me thod Room Air Oxygen Flow Rate 3 Fraction of Inspir ed Oxygen Hydration adequate: Yes Nausea and vomiting: No Pain level: 1 Mental status: Baseline
== END 2024-06-25 09:25 | disposition home or self-care (01) ==
PROVIDERS: PCP Family Medicine; Visit Provider Student in an Organized Health Care Education/Training Program
PROC: 0DJD8ZZ Inspection of Lower Intestinal Tract, Via Natural or Artificial Opening Endoscopic (ICD-10-PCS; CPT 45378; principal; 2024-06-25 08:00)
DX: Z12.11 Encounter for screening for malignant neoplasm of colon (principal); D12.4 Benign neoplasm of descending colon; D12.5 Benign neoplasm of sigmoid colon; D12.8 Benign neoplasm of rectum; F17.210 Nicotine dependence, cigarettes, uncomplicated; J44.9 Chronic obstructive pulmonary disease, unspecified; I10 Essential (primary) hypertension
CPT/HCPCS: 45380; 45385; 88305; J2250; J2704; J3490; J7030

== ENCOUNTER → 2024-07-11 08:00 | Outpatient (BNVA) | payer OTHER, SELFPAY | PROVIDERS: PCP Family Medicine; Visit Provider Student in an Organized Health Care Education/Training Program | DX: Z09 Encounter for follow-up examination after completed treatment for conditions other than malignant neoplasm (principal) | CPT/HCPCS: 99213 ==

== ENCOUNTER → 2024-10-22 12:18 | Outpatient (BNVA) | payer OTHER, SELFPAY | PROVIDERS: PCP Family Medicine; Visit Provider Specialist | DX: Z09 Encounter for follow-up examination after completed treatment for conditions other than malignant neoplasm (principal); G25.0 Essential tremor; G40.209 Localization-related (focal) (partial) symptomatic epilepsy and epileptic syndromes with complex partial seizures, not intractable, without status epilepticus; R03.0 Elevated blood-pressure reading, without diagnosis of hypertension; I95.1 Orthostatic hypotension; G43.711 Chronic migraine without aura, intractable, with status migrainosus | CPT/HCPCS: 99214 ==

== ENCOUNTER → 2024-12-19 08:51 | Outpatient (BNVA) | payer OTHER, SELFPAY | PROVIDERS: PCP Family Medicine; Visit Provider Specialist | DX: G25.0 Essential tremor (principal); R26.9 Unspecified abnormalities of gait and mobility; G43.711 Chronic migraine without aura, intractable, with status migrainosus; G40.209 Localization-related (focal) (partial) symptomatic epilepsy and epileptic syndromes with complex partial seizures, not intractable, without status epilepticus; R03.0 Elevated blood-pressure reading, without diagnosis of hypertension; I95.1 Orthostatic hypotension | CPT/HCPCS: 99214 ==

== ENCOUNTER 2024-12-26 09:43 | Outpatient (CLI) | payer OTHER, SELFPAY ==
--- NOTE | 2024-12-26 10:00 | CT_ITS ---
WS: [id number] CT scan of the head, 12/26/2024 Clinical Data: G43.711 - Chronic migraine without aura, intractable, wit... Comparison: CT head, 05/05/2022 DLP: 1112.[address] scans at [facility] use at least one of these dose optimization techniques: automated exposure control; mA and/or kV adjustment per patient size (includes targeted exams where dose is matched to clinical indication); or iterative reconstruction. Findings: The ventricular system is moderately enlarged without shift. There is a right frontal parietal craniotomy. No recent infarct or hemorrhage is seen. There are no abnormal intracerebral masses. The embolization coils in the posterior fossa have not changed. Bony windows of the skull and skull base show no fractures or erosions. The mastoid air cells, internal auditory canals, sella turcica, intraorbital contents, and paranasal sinuses are unremarkable. CT/CT head wo con* [id number] Impression: 1. Moderate cerebral atrophy with no recent infarct or hemorrhage. 2. Right frontal parietal craniotomy. 3. Stable embolization coils in the posterior fossa.
== END 2024-12-26 09:44 | disposition home or self-care (01) ==
PROVIDERS: PCP Family Medicine; Visit Provider Specialist
DX: G43.711 Chronic migraine without aura, intractable, with status migrainosus (principal); G31.89 Other specified degenerative diseases of nervous system; Z98.890 Other specified postprocedural states; Z96.89 Presence of other specified functional implants; R93.0 Abnormal findings on diagnostic imaging of skull and head, not elsewhere classified
CPT/HCPCS: 70450